=== PATIENT | female | born 1995 | race Two or more races ===

== ENCOUNTER → 2017-01-28 | Outpatient (CLI) | payer OTHER ==
[~2017-01-28] MED LIST: ACET50TA PO; COLA100C3 PO; DIBU1OI TOP; IBUP-1114 PO; IRON65TA PO; PREN27TA3 PO
--- NOTE | 2017-01-28 15:24 | REP ---
MANDIBLE SERIES: Five views. HISTORY: Pain in the lower jaw. FINDINGS: Mandibular rami are intact. No condylar or subcondylar fracture is appreciated on either side. No radiographic evidence of malocclusion. No maxillary fracture is seen. IMPRESSION: Negative views of the mandible. No fracture seen. Signed by Raad Rojas MD 01/28/2017 03:44 P
== END ==
LOC: M LRY 13:53
PROVIDERS: ATTEND Nurse Practitioner Family
DX: R68.84 Jaw pain (principal)
CPT/HCPCS: 70110; G0463